=== PATIENT | female | born 1980 | race African-American/Black ===

== ENCOUNTER 2019-11-12 22:54 | Emergency (ER) | payer MEDICAID, OTHER ==
[~2019-11-12] VITALS: Ht 175.3 cm; Wt 45.4 kg
[2019-11-13] MEDS ORDERED: IPRATROPIUM BROM 0.5 MG/2.5ML INH SOL NEB ONE (00:30)
[2019-11-13] MEDS ORDERED: ALBUTEROL SULF 2.5 MG/0.5ML(0.5%) NEB SOLN NEB ONE (00:30)
[2019-11-13] MEDS ORDERED: cloNIDine HCL 0.1 MG TAB PO ONE ×2 (00:45→04:30)
[2019-11-13 06:00] VITALS: BP 157/106
== END 2019-11-13 07:13 | disposition home or self-care (01) ==
LOC: ER 22:54 → EDBD 22:54 → ER 11-13 07:13
DX: F19.10 Other psychoactive substance abuse, uncomplicated (principal); R05 Cough; R06.02 Shortness of breath; R09.81 Nasal congestion
CPT/HCPCS: 93005; 94640; 99285; J7644

== ENCOUNTER 2019-11-13 07:36 | Inpatient (IN) | payer MEDICAID ==
[~2019-11-13] VITALS: Ht 167.6 cm; Wt 99.2 kg
[2019-11-13] MEDS ORDERED: SODIUM CHLORIDE 0.9% 1,000 ML IVB ONE (07:56)
[2019-11-13] MEDS ORDERED: SODIUM CHLORIDE 0.9% 1,000 ML IV ONE (07:56)
[2019-11-13] MEDS ORDERED: ALBUTEROL SULF 2.5 MG/0.5ML(0.5%) NEB SOLN NEB ONE ×3 (08:00→18:45)
[2019-11-13] MEDS ORDERED: IPRATROPIUM BROM 0.5 MG/2.5ML INH SOL NEB ONE ×3 (08:00→18:45)
[2019-11-13] MEDS ORDERED: methylPREDNISolone SOD SUCC 125 MG/2 ML VL IV ONE (08:00)
[2019-11-13] MEDS ORDERED: LORazepam 2MG/ML-1ML VIAL IV ONE (08:30)
[2019-11-13] MEDS ORDERED: TERBUTALINE SULFATE 1 MG/ML 1ML VIAL SC ONE (08:30)
[2019-11-13 13:25] LABS: Basophils # (auto) 0 10 ^3/uL (0-0.2); Basophils % (auto) 0.1 % (0.0-2.0); Eosinophils # (auto) 0 10 ^3/uL (0-0.8); Eosinophils % (auto) 0.1 % (0.0-7.0); Hematocrit 43.6 % (36.0-46.0); Hemoglobin 14.2 g/dL (12.2-16.2); Lymphocytes # (auto) 0.3 10 ^3/uL (0.4-5.4); Lymphocytes % (auto) 3.7 % (10.0-50.0); Mean Corpuscular Hemoglobin 27.5 pg (28.0-32.0); Mean Corpuscular Hgb Conc. 32.7 g/dL (32.0-36.0); Mean Corpuscular Volume 84.3 fL (80.0-100.0); Monocytes # (auto) 0.1 10 ^3/uL (0-1.3); Monocytes % (auto) 0.6 % (0.0-12.0); Neutrophils # (auto) 8.7 10 ^3/uL (1.6-8.6); Neutrophils % (auto) 95.5 % (37.0-80.0); Platelet Count (auto) 353 10^3/uL (140-450); Red Blood Cells 5.17 10^6/uL (4.0-5.20); Red Cell Distribution Width 14.1 % (11.8-14.3); White Blood Cell 9.1 10^3/uL (4.4-10.8)
[2019-11-13 13:41] LABS: Albumin 3.5 g/dL (3.4-5.0); Calcium 8.2 mg/dL (8.5-10.1); Magnesium 2.3 mg/dL (1.6-2.6); Potassium 3.9 mmol/L (3.5-5.1)
[2019-11-13 13:45] LABS: BUN/Creatinine Ratio 9.5; Bilirubin, Total 0.8 mg/dL (0.2-1.0); Total Protein 7.6 g/dL (6.4-8.2)
[2019-11-13 13:59] LABS: Beta HCG, Quantitative < 1 mlU/mL (1-3); Thyroid Stimulating Hormone 0.34 uIU/mL (0.358-3.74)
[2019-11-13] MEDS ORDERED: SODIUM CHLORIDE 0.9% 1,000 ML IV SCH (18:37)
[2019-11-13] MEDS ORDERED: LORazepam 0.5 MG TAB PO PRN (18:45)
[2019-11-13] MEDS ORDERED: HYDROcodone-ACET 5/325MG TAB PO PRN (18:45)
[2019-11-13] MEDS ORDERED: ACETAMINOPHEN 325 MG TAB PO PRN (18:45)
[2019-11-13] MEDS ORDERED: MORPHINE SULF INJ 2 MG/ML SYRINGE 1ML IV PRN ×2 (18:45)
[2019-11-13] MEDS ORDERED: NITROGLYCERIN 0.4 MG SL TAB SL PRN (18:45)
[2019-11-13] MEDS ORDERED: LISINOPRIL 20 MG TAB PO ONE (18:45)
[2019-11-13] MEDS ORDERED: ACETAMINOPHEN 500 MG TAB PO PRN (18:45)
[2019-11-13] MEDS ORDERED: ALUM & MAG HYDROX-SIMETH LIQ(MAALOX) 30 ML PO PRN (18:45)
[2019-11-13] MEDS ORDERED: cefTRIAXone 1GM/50ML D5W 50 ML IV ONE (18:45)
[2019-11-13] MEDS ORDERED: FUROSEMIDE 20 MG/2 ML VIAL IV ONE (18:45)
[2019-11-13] MEDS ORDERED: ONDANSETRON HCL 4 MG/2 ML VIAL IV PRN (18:45)
[2019-11-13 19:26] VITALS: BP 157/102
[2019-11-13 20:15] VITALS: BP 150/99
--- NOTE | 2019-11-13 20:15 | NUR ---
Telemetry admit from ER STEFFANYANGELITA admitted to Telemetry unit after SBAR received. Patient oriented to Massimo Michelle, primary RN, unit, room, bed, and unit policies regarding patient care and visiting hours. Patient now on continuous telemetry monitoring, tele box #30 and telemetry reading on arrival to unit is [facility]. Patient placed on 4 L NC, weighed by bedscale and encouraged to call if they need something. All questions and concerns addressed, patient verbalized understanding.
[2019-11-13 20:28] LABS: Cholesterol 166 mg/dL (< 200)
[2019-11-13 20:30] LABS: Albumin 3.3 g/dL (3.4-5.0); Calcium 8.7 mg/dL (8.5-10.1); Magnesium 2.4 mg/dL (1.6-2.6); Potassium 4.1 mmol/L (3.5-5.1)
[2019-11-13 20:32] LABS: HDL Cholesterol 70 mg/dL (40-59); LDL Cholesterol 85 mg/dL (< 100); Triglycerides 47 mg/dL (< 150)
[2019-11-13 20:34] LABS: BUN/Creatinine Ratio 11.4; Bilirubin, Total 0.5 mg/dL (0.2-1.0); CRP High Sensitivity 0.6 mg/dL (< 0.3); Total Protein 7.2 g/dL (6.4-8.2)
[2019-11-13] MEDS: methylPREDNISolone SOD SUCC 40 MG/ML VL IV SCH (22:00)
[2019-11-13] MEDS: DOXYCYCLINE 100MG/250ML 250 ML IV SCH (22:00)
[2019-11-13 22:01] VITALS: BP 150/99
--- NOTE | 2019-11-13 22:45 | NUR ---
IV removal IV left AC DC'd with clean sterile technique, catheter fully intact. Pressure dressing applied to site. Patient tolerated well.
[2019-11-13] MEDS: ALBUTEROL SULF 2.5 MG/0.5ML(0.5%) NEB SOLN NEB SCH (22:47)
[2019-11-13] MEDS: IPRATROPIUM BROM 0.5 MG/2.5ML INH SOL NEB SCH (22:47)
[2019-11-14] MEDS: ALBUTEROL SULF 2.5 MG/0.5ML(0.5%) NEB SOLN NEB SCH ×6 (02:32→22:06)
[2019-11-14] MEDS: IPRATROPIUM BROM 0.5 MG/2.5ML INH SOL NEB SCH ×6 (02:32→22:06)
[2019-11-14 05:00] VITALS: BP 144/85
[2019-11-14] MEDS ORDERED: FUROSEMIDE 20 MG/2 ML VIAL IV SCH (06:00)
[2019-11-14] MEDS: methylPREDNISolone SOD SUCC 40 MG/ML VL IV SCH ×4 (06:42→22:45)
[2019-11-14 06:49] LABS: Basophils # (auto) 0 10 ^3/uL (0-0.2); Basophils % (auto) 0.3 % (0.0-2.0); Eosinophils # (auto) 0 10 ^3/uL (0-0.8); Eosinophils % (auto) 0.1 % (0.0-7.0); Hematocrit 41.4 % (36.0-46.0); Hemoglobin 13.7 g/dL (12.2-16.2); Lymphocytes # (auto) 0.5 10 ^3/uL (0.4-5.4); Lymphocytes % (auto) 4.9 % (10.0-50.0); Mean Corpuscular Hemoglobin 27.2 pg (28.0-32.0); Mean Corpuscular Volume 82.3 fL (80.0-100.0); Monocytes # (auto) 0.1 10 ^3/uL (0-1.3); Monocytes % (auto) 1.4 % (0.0-12.0); Neutrophils # (auto) 10.2 10 ^3/uL (1.6-8.6); Neutrophils % (auto) 93.3 % (37.0-80.0); Nucleated Red Blood Cells % 0.2 %; Platelet Count (auto) 378 10^3/uL (140-450); Red Blood Cells 5.03 10^6/uL (4.0-5.20); Red Cell Distribution Width 14.3 % (11.8-14.3)
[2019-11-14 07:06] LABS: Albumin 3.5 g/dL (3.4-5.0); Potassium 3.9 mmol/L (3.5-5.1)
[2019-11-14 07:10] LABS: BUN/Creatinine Ratio 12.5; Bilirubin, Total 0.4 mg/dL (0.2-1.0); Total Protein 7.5 g/dL (6.4-8.2)
[2019-11-14 07:30] VITALS: BP 138/100
--- NOTE | 2019-11-14 07:30 | NUR ---
Opening Shift Note Assumed patient care from NOC Massimo [facility].
--- NOTE | 2019-11-14 07:46 | NUR ---
Jennifer Wisdom regarding orders. New orders received. Will obtain kyle swab. Addendum: 11/14/19 at 1556 by BLAYNE TORRES RN RN cylinder grinder Sam notified.
--- NOTE | 2019-11-14 08:15 | NUR ---
Teri Swab Obtained teri swab and walked to lab. pathological technician aware.
[2019-11-14 08:47] VITALS: BP 138/100
[2019-11-14] MEDS: CHOLECALCIFEROL (VITD3) 2,000 UNIT CAP PO SCH (10:00)
[2019-11-14] MEDS: ZINC SULFATE 220mg CAP or TAB PO SCH (10:00)
[2019-11-14] MEDS: ASCORBIC ACID 1,000 MG TAB PO SCH (10:00)
[2019-11-14] MEDS: DOXYCYCLINE 100MG/250ML 250 ML IV SCH ×2 (10:43→22:45)
[2019-11-14] MEDS: LISINOPRIL 20 MG TAB PO SCH (10:45)
[2019-11-14] MEDS: ENOXAPARIN SOD 40 MG/0.4 ML SYRINGE SC SCH (10:46)
--- NOTE | 2019-11-14 11:12 | NUR ---
PT BEING TESTED FOR COVID. ALBUTEROL AND ATROVENT HELD DUE TO PT NOT IN A NEGATIVE PRESSURE ROOM FOR MED NEB. RN MADE AWARE. WILL CONTINUE TO MONITOR PT.
--- NOTE | 2019-11-14 11:16 | NUR ---
MD Per Dr. Thornton, hold breathing treatments at this time, wait for covid results.
[2019-11-14 12:49] VITALS: BP 128/68
--- NOTE | 2019-11-14 13:00 | NUR ---
COVID Swab Covid swab obtained. Patient tolerated well, respirations even and unlabored. No signs of distress at this time. Swab walked down to lab, mason tender restoration labor aware. Safety precautions in place, will continue to monitor.
--- NOTE | 2019-11-14 14:35 | NUR ---
MD Spoke with Dr. Thornton regarding patient complaint of shortness of breath. Per MD, will order inhaler and call RT to obtain ABG.
--- NOTE | 2019-11-14 14:45 | NUR ---
RT Spoke with Meliza BARRY; made aware of new orders for ABG and inhaler.
[2019-11-14] MEDS ORDERED: LORazepam 0.5 MG TAB PO PRN (15:00)
[2019-11-14] MEDS ORDERED: ACETAMINOPHEN 325 MG TAB PO PRN (15:00)
--- NOTE | 2019-11-14 15:27 | NUR ---
MED NEBS HELD AT THIS TIME DUE TO PENDING COVID RESULTS. PT ON RA WITH SPO2 92%, RR 20, HR 78. AWILDA CISNEROS MADE AWARE. ABG WAS DONE WITH NO INCIDENT REPORTED. WILL CONTINUE TO MONITOR PT.
[2019-11-14 17:00] VITALS: BP 126/80
--- NOTE | 2019-11-14 17:00 | NUR ---
MD Called Received call back from Dr. Thornton; aware of covid negative results. New orders received.
[2019-11-14] MEDS: BUDESONIDE (INHALATION) 0.5 MG/2 ML NEB NEB SCH (17:43)
--- NOTE | 2019-11-14 18:18 | NUR ---
Shower Patient requesting to shower. Patient educated on need for doctor's order to shower due to tele status and risks of showering at this time. Patient verbalized understanding but continues to insist on shower, states "I need to shower anyway." IV covered, patient instructed to keep shower brief and call due to tele status and need to monitor heart rhythm. Patient verbalized understanding.
[2019-11-14 22:00] VITALS: BP 153/60
[2019-11-14] MEDS ORDERED: ALBUTEROL SULF HFA 90MCG INH 200DOSE IN SCH (22:00)
[2019-11-14] MEDS ORDERED: BUDESONIDE (INHALATION) 180 MCG IH IN SCH (22:00)
--- NOTE | 2019-11-14 22:10 | NUR ---
IV removal IV DC'd with clean sterile technique, catheter fully intact. Pressure dressing applied to site. Patient tolerated well.
--- NOTE | 2019-11-14 22:10 | NUR ---
IV insertion IV access obtained, via clean sterile technique by inserting 22 gauge catheter at left FA after 1 attempt(s). IV secured properly. No trauma to site. Patient tolerated well.
[2019-11-15] MEDS: ALBUTEROL SULF 2.5 MG/0.5ML(0.5%) NEB SOLN NEB SCH ×6 (02:12→22:44)
[2019-11-15] MEDS: IPRATROPIUM BROM 0.5 MG/2.5ML INH SOL NEB SCH ×4 (02:12→13:52)
[2019-11-15 05:00] VITALS: BP 136/106
[2019-11-15] MEDS: methylPREDNISolone SOD SUCC 40 MG/ML VL IV SCH (06:00)
[2019-11-15] MEDS: BUDESONIDE (INHALATION) 0.5 MG/2 ML NEB NEB SCH ×2 (07:11→19:06)
[2019-11-15 09:00] VITALS: BP 150/96
[2019-11-15] MEDS: ASCORBIC ACID 1,000 MG TAB PO SCH (10:00)
[2019-11-15] MEDS: CHOLECALCIFEROL (VITD3) 2,000 UNIT CAP PO SCH (10:00)
[2019-11-15] MEDS: ZINC SULFATE 220mg CAP or TAB PO SCH (10:00)
[2019-11-15] MEDS: DOXYCYCLINE 100MG/250ML 250 ML IV SCH (10:05)
[2019-11-15] MEDS: ENOXAPARIN SOD 40 MG/0.4 ML SYRINGE SC SCH (10:06)
[2019-11-15] MEDS: LISINOPRIL 20 MG TAB PO SCH (10:07)
--- NOTE | 2019-11-15 12:00 | NUR ---
IV infiltrated IV to left forearm infiltrated and leaking. Same removed with catheter intact and pressure dressing applied. Will reinsert new IV, patient requested to wait until after lunch.
[2019-11-15 12:52] VITALS: BP 138/70
[2019-11-15] MEDS ORDERED: IPRATROPIUM BROM 0.5 MG/2.5ML INH SOL NEB SCH (14:00)
[2019-11-15] MEDS ORDERED: METH4PAK PO (14:55)
[2019-11-15] MEDS ORDERED: DOXY-340 PO (14:55)
[2019-11-15] MEDS ORDERED: LISI-646 PO (14:55)
--- NOTE | 2019-11-15 15:20 | NUR ---
Phone call with hospitalist Hospitalist was notified that patient does not currently have IV access. Per Dr. Thornton, IV medications have been changed to oral. Patient getting discharged in the AM, does not need new IV. Downgraded to medsur status.
[2019-11-15 17:00] VITALS: BP 150/89
[2019-11-15] MEDS: DOXYCYCLINE 100 MG TAB/CAP PO SCH (21:32)
[2019-11-16] MEDS: ALBUTEROL SULF 2.5 MG/0.5ML(0.5%) NEB SOLN NEB SCH ×4 (02:22→14:37)
--- NOTE | 2019-11-16 02:58 | NUR ---
business services sales agent consult placed to complete discharge criteria. Patient has discharge order for 0800 but while completing packet in preparation, the order for discharge states patient should follow up with PCP and English Language Arts Teacher within one week. Patient does not have PCP not a channel marketing specialist. Patient also stated that she lacks temporary housing and that the closest place to a permanent residence is her father's home, which she can only stay at briefly. business services sales agent consult placed. Discharge cannot be completed until this is done.
[2019-11-16 05:30] VITALS: BP 139/70
--- NOTE | 2019-11-16 08:20 | NUR ---
PT TAKES SHOWER IN PREPARATION FOR DC HOME. SW REPORTS [employer]ER READY FOR TRANSPORTATION HOME. RECOMMENDS CONTACTING GIANNA MAYNARD FOR ARRANGING PCP AND F/U WITH [facility] DRUMMER.
--- NOTE | 2019-11-16 08:54 | NUR ---
Assessment Per social service consult patient stating she feels unsafe returning to [place]. Patient is a 39-year-old female who is alert and oriented. Prior to admission patient lived home with family and functioned independently. Patient stated she got into an argument with her sister but does feel safe returning home. Patient can care for her own ADLs. Per patient she does not have any medical equipment now. Per patient she will return home to her prior living arrangements post discharge and will need a taxi voucher. Informed patient she has a right to participate in all discharge planning. Patient verbalized understanding and agreed to discharge plan. Informed AWILDA Duncan. Addendum: 11/16/19 at 0859 by PDAMAJA LANTIGUA Amended: Links added.
[2019-11-16 09:00] VITALS: BP 150/97
[2019-11-16] MEDS: ENOXAPARIN SOD 40 MG/0.4 ML SYRINGE SC SCH (10:00)
[2019-11-16] MEDS ORDERED: predniSONE 20 MG TAB PO SCH (10:00)
[2019-11-16] MEDS: DOXYCYCLINE 100 MG TAB/CAP PO SCH (10:21)
[2019-11-16] MEDS: LISINOPRIL 20 MG TAB PO SCH (10:27)
[2019-11-16] MEDS: BUDESONIDE (INHALATION) 0.5 MG/2 ML NEB NEB SCH (10:35)
[2019-11-16 10:39] VITALS: BP 139/70
--- NOTE | 2019-11-16 10:58 | NUR ---
PT RETURNS TO ROOM FROM SMOKING OUTSIDE. 1000 MEDS GIVEN. PT REPORTS SHE PLACED HER CLOTHES INTO [employer]. THEY ARE NOW LOST. SHE IS TRYING ON DONATED CLOTHING NOW.
--- NOTE | 2019-11-16 12:04 | NUR ---
Nutrition Assessment Notes please see attached link for complete assessment Est energy needs ABW 79 [id number] kcal (20-23kcal/kg ABW ), Est protein needs: 79-86 g (1-1.1g/kg ABW). Will reassess prn. Addendum: 11/16/19 at [address] Amended: Links added.
== END 2019-11-16 13:00 | disposition home or self-care (01) | DRG 133 ==
LOC: ER 07:36 → TELE 07:37 → TELE-CENTR 20:15 → CENTRAL 11-15 14:51
PROVIDERS: ADMIT Hospitalist; ATTEND Internal Medicine Nephrology
DX: J96.00 Acute respiratory failure, unspecified whether with hypoxia or hypercapnia (principal); J45.51 Severe persistent asthma with (acute) exacerbation; E05.90 Thyrotoxicosis, unspecified without thyrotoxic crisis or storm; I10 Essential (primary) hypertension; F17.210 Nicotine dependence, cigarettes, uncomplicated; F41.9 Anxiety disorder, unspecified; J44.9 Chronic obstructive pulmonary disease, unspecified; Z79.899 Other long term (current) drug therapy; Z20.828 Contact with and (suspected) exposure to other viral communicable diseases
CPT/HCPCS: 36415; 36600; 71045; 80053; 80061; 82728; 82805; 83036; 83605; 83615; 83735; 84443; 84484; 84702; 85025; 85379; 86141; 87081; 87426; 94640; G0378; J0696; J3490